=== PATIENT | female | born 1945 | race Caucasian/White ===

== ENCOUNTER 2022-08-18 14:45 | Inpatient (IN) | payer MEDICARE ==
[~2022-08-18] VITALS: Ht 160 cm; Wt 73.5 kg
[2022-08-18 15:30] LABS: BASOPHILS ABSOLUTE AUTO 0.08 K/mm3 (0.00-0.23); BASOPHILS PERCENT AUTO 1 % (0-2); EOSINOPHILS ABSOLUTE AUTO 0.29 K/mm3 (0.00-0.68); EOSINOPHILS PERCENT AUTO 3 % (0-6); Hematocrit 46.3 % (33.0-51.0); Hemoglobin 15.9 g/dL (11.5-16.0); IMMATURE GRAN ABSOLUTE AUTO 0.01 K/mm3 (0.00-0.10); IMMATURE GRAN PERCENT AUTO 0 % (0-1); LYMPHOCYTES ABSOLUTE AUTO 1.73 K/mm3 (0.84-5.20); LYMPHOCYTES PERCENT AUTO 20 % (21-46); MONOCYTES ABSOLUTE AUTO 1.17 K/mm3 (0.16-1.47); MONOCYTES PERCENT AUTO 14 % (4-13); Mean Corpuscular HGB 29.4 pg (26.0-34.0); Mean Corpuscular HGB Conc 34.3 g/dL (31.5-36.5); Mean Corpuscular Volume 86 fL (80-100); Mean Platelet Volume 11.1 fL (9.1-12.4); NEUTROPHILS ABSOLUTE AUTO 5.21 K/mm3 (1.96-9.15); NEUTROPHILS PERCENT AUTO 61 % (41-73); Platelet Count 300 K/mm3 (150-400); RDW Coefficient Variation 13.1 % (11.7-14.2); RDW Standard Deviation 40.6 fL (35.1-46.3); Red Blood Cell Count 5.41 M/mm3 (3.80-5.20); White Blood Cell Count 8.49 K/mm3 (4.00-11.30)
[2022-08-18 15:56] LABS: Albumin, Blood 4.1 g/dL (3.4-5.0); Albumin/Globulin Ratio 0.9 (0.8-1.8); Bilirubin, Total 0.6 mg/dL (0.1-1.0); Bun/Creatinine Ratio 29.9 (12.0-20.0); Calcium, Blood 9.6 mg/dL (8.5-10.1); Creatinine, Blood 2.51 mg/dL (0.40-1.00); Globulin, Blood 4.5 g/dL (2.2-4.0); Potassium, Blood 5.2 mmol/L (3.5-5.5); Total Protein, Blood 8.6 g/dL (6.4-8.2)
[2022-08-18 19:44] LABS: Source, Urine Clean Catch
[2022-08-18] MEDS ORDERED: FURO80 PO (20:04)
[2022-08-18] MEDS ORDERED: ELIQUIS5 M2 PO (20:04)
[2022-08-18] MEDS ORDERED: SPIR25 PO (20:04)
[2022-08-18] MEDS ORDERED: MAGNESIUM OXID500 MG PO (20:04)
[2022-08-18 20:05] LABS: Appearance, Urine Clear (Clear); Bilirubin, Urine Neg (Neg); Blood, Urine Neg (Neg); Color, Urine Yellow (P-Yellow); Glucose Qualitative, Urine Neg (Neg); Ketones, Urine Neg (Neg); Leukocyte Esterase, Urine 1+ (Neg); Nitrite, Urine Neg (Neg); Protein, Urine Neg (Neg); Specific Gravity, Urine 1.015 (1.003-1.022); Urobilinogen, Urine NORM (Normal)
[2022-08-18] MEDS ORDERED: TRIA15CR3 TOP (20:05)
[2022-08-18] MEDS ORDERED: LOSA25 PO (20:05)
[2022-08-18] MEDS ORDERED: CHLO25B PO (20:06)
[2022-08-18] MEDS ORDERED: METO100ER PO (20:07)
[2022-08-18] MEDS ORDERED: ATOR20 PO (20:07)
[2022-08-18] MEDS ORDERED: OMEP20ER PO (20:07)
[2022-08-18] MEDS ORDERED: THERA-D2000 UNIT PO (20:07)
[2022-08-18] MEDS ORDERED: LACT PO (20:08)
[2022-08-18 20:27] LABS: Bacteria Few /hpf; Squamous Epithelial Cells Few /hpf (Few)
[2022-08-18 20:28] LABS: Transitional Epithelial Cells Few /hpf (0-Rare)
--- NOTE | 2022-08-18 21:35 | NUR ---
PATIENT IS A NEW ADMIT FROM THE ED. AXOX 4 AND INDEPENDENT ARRIVED VIA W/C. REPORTED RIGHT FLANK PAIN AND RECEIVED TYLENOL IN ED PER ED RN. DENIES CHEST PAIN, SOB, AND N/V. REPORTS JUST MOVED TO [place] WITH HER SPOUSE. ORIENTED TO ROOM AND CALL LIGHT SYSTEM. NS STARTED @ 100 mL/HR. REPORTS WANTS TO WATCH TV AFTER ASSESSMENT. WCTM.
[2022-08-19 03:05] VITALS: BP 122/65
--- NOTE | 2022-08-19 04:11 | NUR ---
SHIFT SUMMARY PATIENT HAD NO ACUTE CHANGES. AXOX 4 AND SBA TO BSC. PIV REMAINS INTACT. NS INFUSING AT 100 mL/HR. VSS/AFEBRILE. DENIES CHEST PAIN, SOB, AND N/V. COOPERATIVE WITH CARE. CALL LIGHT IN REACH. BED IN LOWEST POSITION. WILL CONTINUE TO MONITOR UNTIL DAY SHIFT NURSE ASSUMES CARE.
[2022-08-19 05:36] LABS: Magnesium, Blood 2.1 mg/dL (1.6-2.4)
[2022-08-19 05:37] LABS: Calcium, Blood 8.6 mg/dL (8.5-10.1); Creatinine, Blood 1.86 mg/dL (0.40-1.00); Potassium, Blood 3.4 mmol/L (3.5-5.5)
[2022-08-19 07:39] VITALS: BP 143/64
[2022-08-19 16:14] VITALS: BP 128/68
--- NOTE | 2022-08-19 16:57 | NUR ---
SHIFT SUMMARY- PT IS A/O, PLESANT AND COOPERATVIE. HER APPETITE IS POOR THIS SHIFT. SHE IS INDEPENDENT TO THE BSC. SHE IS RECIEVING IV FLUIDS. HER BED IS IN THE LOW POSITION AND CALL LIGHT IS SHAHANA BAR. FAMILY AT BEDSIDE.
[2022-08-19 20:05] VITALS: BP 130/54
[2022-08-20 03:56] VITALS: BP 148/59
--- NOTE | 2022-08-20 04:48 | NUR ---
shift summery. pt up to bsc at sameer surring the night. pt alert and oriented. pt able to sleeep for a while durring the night. call light in reach.
[2022-08-20 05:44] LABS: Hematocrit 38.3 % (33.0-51.0); Hemoglobin 13.1 g/dL (11.5-16.0); Mean Corpuscular HGB 29.7 pg (26.0-34.0); Mean Corpuscular HGB Conc 34.2 g/dL (31.5-36.5); Mean Corpuscular Volume 87 fL (80-100); Platelet Count 219 K/mm3 (150-400); RDW Coefficient Variation 12.9 % (11.7-14.2); RDW Standard Deviation 41.1 fL (35.1-46.3); Red Blood Cell Count 4.41 M/mm3 (3.80-5.20); White Blood Cell Count 5.51 K/mm3 (4.00-11.30)
[2022-08-20 06:11] LABS: Albumin/Globulin Ratio 0.9 (0.8-1.8); Bilirubin, Total 0.5 mg/dL (0.1-1.0); Bun/Creatinine Ratio 31.4 (12.0-20.0); Calcium, Blood 8.6 mg/dL (8.5-10.1); Creatinine, Blood 1.18 mg/dL (0.40-1.00); Globulin, Blood 3.3 g/dL (2.2-4.0); Potassium, Blood 3.7 mmol/L (3.5-5.5)
[2022-08-20 06:13] LABS: Total Protein, Blood 6.3 g/dL (6.4-8.2)
[2022-08-20 07:18] VITALS: BP 147/63
[2022-08-20] MEDS ORDERED: FUROSEMIDE PO (11:18)
[2022-08-20] MEDS ORDERED: Potassium Chlo10 ME1 PO (11:19)
--- NOTE | 2022-08-20 12:38 | NUR ---
DISCHARGE SUMMARY S/P LILA, A/OX4, VSS, TOLERATING PO, INDEPENDENT IN THE ROOM, REPORTS PAIN A HEADACHE WHICH WAS RELIEVED BY TYLENOL PER HER REPORT. DISCHARGE INSTRUCTIONS DISCUSSED WITH THE PT INCLUDING HOME CARE, MEDICATION CHANGES, AND FOLLOW UP APPOINTMENTS. SHE HAD NO QUESTIONS AT TIME OF DISCHARGE, IV ACCESS REMOVED, PT ESCORTED OUT VIA WC TO PRIVATE AUTO.
== END 2022-08-20 12:08 | disposition home or self-care (01) | DRG 682 ==
LOC: ER 14:45 → ERHOLD 15:46 → MEDS 15:46
PROVIDERS: Nurse Practitioner Acute Care; Physician Assistant; ADMIT Internal Medicine
DX: N17.9 Acute kidney failure, unspecified (principal); K85.90 Acute pancreatitis without necrosis or infection, unspecified; I48.0 Paroxysmal atrial fibrillation; I10 Essential (primary) hypertension; E78.5 Hyperlipidemia, unspecified; K21.9 Gastro-esophageal reflux disease without esophagitis; E87.6 Hypokalemia; G47.33 Obstructive sleep apnea (adult) (pediatric); G89.29 Other chronic pain; M54.50 Low back pain, unspecified; E86.0 Dehydration; Z87.440 Personal history of urinary (tract) infections; Z85.3 Personal history of malignant neoplasm of breast; Z98.890 Other specified postprocedural states; Z88.0 Allergy status to penicillin; Z88.8 Allergy status to other drugs, medicaments and biological substances; Z79.01 Long term (current) use of anticoagulants; Z79.899 Other long term (current) drug therapy
CPT/HCPCS: 36415; 76770; 80048; 80053; 81001; 83690; 83735; 85025; 85027; 87086; 96360; 96361; 99285-25; A9270; G0378; J7030

== ENCOUNTER 2022-12-03 11:35 | Emergency (ER) | payer MEDICARE ==
[~2022-12-03] VITALS: Ht 160 cm; Wt 79.4 kg
[~2022-12-03 11:35] MED LIST: ATOR20 PO; CHLO25B PO; ELIQUIS5 M2 PO; FURO80 PO; FUROSEMIDE PO; LACT PO; LOSA25 PO; MAGNESIUM OXID500 MG PO; METO100ER PO; OMEP20ER PO; Potassium Chlo10 ME1 PO; SPIR25 PO; THERA-D2000 UNIT PO; TRIA15CR3 TOP
[2022-12-03 11:45] VITALS: BP 186/82
== END 2022-12-03 12:59 | disposition home or self-care (01) ==
LOC: ER 11:35
DX: S01.81XA Laceration without foreign body of other part of head, initial encounter (principal); S16.1XXA Strain of muscle, fascia and tendon at neck level, initial encounter; W22.8XXA Striking against or struck by other objects, initial encounter; Z88.0 Allergy status to penicillin; Z79.899 Other long term (current) drug therapy
CPT/HCPCS: 70450; 72125; 99283-25; A9270

== ENCOUNTER 2023-10-23 08:37 | Emergency (ER) | payer MEDICARE ==
[~2023-10-23] VITALS: Ht 160 cm; Wt 78.5 kg
[~2023-10-23 08:37] MED LIST changes: +ASPI81CH PO; +ATOR80 PO; +LOSA50 PO
[2023-10-23] MEDS ORDERED: Prochlorperazine Edisylate 10 mg Vial IV ONE (09:10)
[2023-10-23] MEDS ORDERED: Acetaminophen 500 MG Tab PO ONE (09:15)
[2023-10-23 09:26] LABS: BASOPHILS PERCENT AUTO 1 % (0-2); EOSINOPHILS ABSOLUTE AUTO 0.11 K/mm3 (0.00-0.68); EOSINOPHILS PERCENT AUTO 1 % (0-6); Hematocrit 45.3 % (33.0-51.0); Hemoglobin 15.3 g/dL (11.5-16.0); IMMATURE GRAN ABSOLUTE AUTO 0.03 K/mm3 (0.00-0.10); IMMATURE GRAN PERCENT AUTO 0 % (0-1); LYMPHOCYTES ABSOLUTE AUTO 1.72 K/mm3 (0.84-5.20); LYMPHOCYTES PERCENT AUTO 20 % (21-46); MONOCYTES ABSOLUTE AUTO 0.84 K/mm3 (0.16-1.47); MONOCYTES PERCENT AUTO 10 % (4-13); Mean Corpuscular HGB 29.5 pg (26.0-34.0); Mean Corpuscular HGB Conc 33.8 g/dL (31.5-36.5); Mean Corpuscular Volume 87 fL (80-100); Mean Platelet Volume 10.5 fL (9.1-12.4); NEUTROPHILS ABSOLUTE AUTO 5.96 K/mm3 (1.96-9.15); NEUTROPHILS PERCENT AUTO 68 % (41-73); Platelet Count 372 K/mm3 (150-400); RDW Coefficient Variation 14.4 % (11.7-14.2); RDW Standard Deviation 46.1 fL (35.1-46.3); Red Blood Cell Count 5.19 M/mm3 (3.80-5.20); White Blood Cell Count 8.76 K/mm3 (4.00-11.30)
[2023-10-23 09:57] LABS: Albumin, Blood 3.7 g/dL (3.4-5.0); Albumin/Globulin Ratio 0.8 (0.8-1.8); Bilirubin, Total 0.9 mg/dL (0.1-1.0); Bun/Creatinine Ratio 22.8 (12.0-20.0); Calcium, Blood 9.3 mg/dL (8.5-10.1); Creatinine, Blood 1.23 mg/dL (0.40-1.00); Globulin, Blood 4.5 g/dL (2.2-4.0); Potassium, Blood 5.8 mmol/L (3.5-5.5); Total Protein, Blood 8.2 g/dL (6.4-8.2)
[2023-10-23] MEDS ORDERED: NS 1,000 ML IV SCH (10:20)
[2023-10-23 12:04] LABS: Influenza A, PCR NEGATIVE (NEGATIVE); Influenza B, PCR NEGATIVE (NEGATIVE); Resp Syncytial Virus, PCR NEGATIVE (NEGATIVE); SARS-Cov-2 (COVID-19) PCR, MMC NEGATIVE (NEGATIVE)
[2023-10-23 13:16] LABS: Bun/Creatinine Ratio 20.8 (12.0-20.0); Calcium, Blood 8.5 mg/dL (8.5-10.1); Creatinine, Blood 1.3 mg/dL (0.40-1.00); Potassium, Blood 4.7 mmol/L (3.5-5.5)
[2023-10-23 15:00] VITALS: BP 148/67
[2023-10-24] MEDS ORDERED: Sodium Zirconium Cyclosilicate 10 GM Packet PO SCH (09:00)
== END 2023-10-23 16:03 ==
LOC: ER 08:37
PROVIDERS: Emergency Medicine
DX: I63.9 Cerebral infarction, unspecified (principal); G81.91 Hemiplegia, unspecified affecting right dominant side; E86.0 Dehydration; E87.5 Hyperkalemia; I48.91 Unspecified atrial fibrillation; I11.0 Hypertensive heart disease with heart failure; I50.9 Heart failure, unspecified; E78.5 Hyperlipidemia, unspecified; K21.9 Gastro-esophageal reflux disease without esophagitis; Z86.73 Personal history of transient ischemic attack (TIA), and cerebral infarction without residual deficits; Z88.0 Allergy status to penicillin; Z88.8 Allergy status to other drugs, medicaments and biological substances; Z79.01 Long term (current) use of anticoagulants; Z79.82 Long term (current) use of aspirin; Z79.899 Other long term (current) drug therapy; Z66 Do not resuscitate
CPT/HCPCS: 0241U; 70450; 80048; 80053; 82550; 84132; 85025; 93005; 93010; 96361; 96374; 97110; 97162; 99285-25; A9270; J0780; J7030

== ENCOUNTER 2023-12-26 03:00 | Inpatient (IN) | payer MEDICARE ==
[~2023-12-26] VITALS: Ht 160 cm; Wt 78.5 kg
[2023-12-26 03:36] LABS: BASOPHILS ABSOLUTE AUTO 0.11 K/mm3 (0.00-0.23); BASOPHILS PERCENT AUTO 1 % (0-2); EOSINOPHILS ABSOLUTE AUTO 0.32 K/mm3 (0.00-0.68); EOSINOPHILS PERCENT AUTO 2 % (0-6); Hemoglobin 13.8 g/dL (11.5-16.0); IMMATURE GRAN ABSOLUTE AUTO 0.05 K/mm3 (0.00-0.10); IMMATURE GRAN PERCENT AUTO 0 % (0-1); LYMPHOCYTES ABSOLUTE AUTO 1.73 K/mm3 (0.84-5.20); LYMPHOCYTES PERCENT AUTO 13 % (21-46); MONOCYTES PERCENT AUTO 7 % (4-13); Mean Corpuscular HGB 29.4 pg (26.0-34.0); Mean Corpuscular HGB Conc 33.7 g/dL (31.5-36.5); Mean Corpuscular Volume 87 fL (80-100); Mean Platelet Volume 10.6 fL (9.1-12.4); NEUTROPHILS ABSOLUTE AUTO 10.47 K/mm3 (1.96-9.15); NEUTROPHILS PERCENT AUTO 77 % (41-73); Platelet Count 297 K/mm3 (150-400); RDW Coefficient Variation 14.1 % (11.7-14.2); RDW Standard Deviation 45.7 fL (35.1-46.3); White Blood Cell Count 13.58 K/mm3 (4.00-11.30)
[2023-12-26] MEDS ORDERED: Lactated Ringer's 1,000 ML IV ONE (03:40)
[2023-12-26 03:53] LABS: Albumin, Blood 3.3 g/dL (3.4-5.0); Albumin/Globulin Ratio 0.9 (0.8-1.8); Bilirubin, Total 0.6 mg/dL (0.1-1.0); Bun/Creatinine Ratio 21.4 (12.0-20.0); Calcium, Blood 9.3 mg/dL (8.5-10.1); Creatinine, Blood 0.98 mg/dL (0.40-1.00); Globulin, Blood 3.7 g/dL (2.2-4.0); Potassium, Blood 4.1 mmol/L (3.5-5.5)
[2023-12-26] MEDS ORDERED: Diltiazem HCl 5 MG / ML 5ML Vial IV ONE (04:40)
[2023-12-26 04:44] LABS: Influenza A, PCR NEGATIVE (NEGATIVE); Influenza B, PCR NEGATIVE (NEGATIVE); Resp Syncytial Virus, PCR NEGATIVE (NEGATIVE); SARS-Cov-2 (COVID-19) PCR, MMC NEGATIVE (NEGATIVE)
[2023-12-26] MEDS ORDERED: LevoFLOXacin 750 MG Tab PO ONE (06:15)
[2023-12-26] MEDS ORDERED: FLU VACC TS2024-25(6MOS UP)/PF 45 MCG/0.5 ML SYRINGE IM SCH (06:55)
[2023-12-26] MEDS ORDERED: Azithromycin 500 MG in NS 250 ML IV SCH (08:00)
[2023-12-26] MEDS ORDERED: Aspirin 81 MG Chew PO SCH (09:00)
[2023-12-26] MEDS ORDERED: CefTRIAXone Sodium 1,000 MG in NS 100 ML IV SCH (09:00)
[2023-12-26] MEDS ORDERED: Metoprolol Succinate 50 MG TABCR PO SCH (09:00)
[2023-12-26] MEDS ORDERED: Atorvastatin 40 MG Tab PO SCH (09:00)
[2023-12-26] MEDS ORDERED: Apixaban 5 MG Tab PO SCH (09:00)
[2023-12-26 11:25] VITALS: BP 156/105
[2023-12-26] MEDS ORDERED: Ondansetron HCl 2 MG / ML 2ML Vial IV PRN (12:20)
[2023-12-26] MEDS ORDERED: Albuterol 2.5 MG/3 ML VIAL INH PRN (12:25)
--- NOTE | 2023-12-26 13:10 | NUR ---
NICOLE MOULTON RE TROP ELEVATED. REQUEST NEW TROP AT 1600. DONE
[2023-12-26] MEDS ORDERED: [UNRECOGNIZED DRUG - CODE] PO (14:21)
[2023-12-26] MEDS ORDERED: MELATONIN 5 MG1 EACH PO (14:22)
[2023-12-26] MEDS ORDERED: Acetaminophen650 M1 PO (14:23)
[2023-12-26] MEDS ORDERED: BISA10S PR (14:25)
[2023-12-26 15:43] VITALS: BP 146/85
--- NOTE | 2023-12-26 16:29 | NUR ---
CALLED AND UPDATED DR MOULTON FOR BNP [phone], PT ALSO REQUESTED TYLENOL FOR HEADACHE, TO MAKE ORDRES.
[2023-12-26] MEDS ORDERED: Acetaminophen 325 MG TABLET PO PRN (16:30)
[2023-12-26] MEDS ORDERED: Furosemide 10 MG / ML 2ML Vial IV SCH (17:00)
--- NOTE | 2023-12-26 17:55 | NUR ---
PT PLEASANT COOP SINCE ADMIT THIS MIDDAY. H/R REG, NO MURMUR NOTED. PER TELE NSR 79. NO EDEMA NOTED. IN TO VISIT THIS AFT. BUN AND TROP ELEVATED DISCUSSED WITH DR MOULTON. LUNGS LEFT UPPER CLEAR, CRACKLES T/O REST OF LUNG. DIM IN BOTH BASES. ON 2L O2, PT SITTING IN BED WATCHING TV AT THIS TIME. BED IN LOW POSITIOIN, CALL LITE IN REACH,, CALLS APROP
[2023-12-26 19:56] VITALS: BP 137/75
[2023-12-27] VITALS (9 sets, daily range): BP systolic 119–163; BP diastolic 68–91
[2023-12-27] MEDS ORDERED: Omeprazole 20 MG CapCR PO SCH (06:00)
[2023-12-27 06:51] LABS: BASOPHILS ABSOLUTE AUTO 0.07 K/mm3 (0.00-0.23); BASOPHILS PERCENT AUTO 1 % (0-2); EOSINOPHILS ABSOLUTE AUTO 0.21 K/mm3 (0.00-0.68); EOSINOPHILS PERCENT AUTO 2 % (0-6); Hematocrit 35.4 % (33.0-51.0); Hemoglobin 11.8 g/dL (11.5-16.0); IMMATURE GRAN ABSOLUTE AUTO 0.03 K/mm3 (0.00-0.10); IMMATURE GRAN PERCENT AUTO 0 % (0-1); LYMPHOCYTES ABSOLUTE AUTO 1.05 K/mm3 (0.84-5.20); LYMPHOCYTES PERCENT AUTO 10 % (21-46); MONOCYTES ABSOLUTE AUTO 1.04 K/mm3 (0.16-1.47); MONOCYTES PERCENT AUTO 10 % (4-13); Mean Corpuscular HGB Conc 33.3 g/dL (31.5-36.5); Mean Corpuscular Volume 87 fL (80-100); Mean Platelet Volume 11.4 fL (9.1-12.4); NEUTROPHILS ABSOLUTE AUTO 8.16 K/mm3 (1.96-9.15); NEUTROPHILS PERCENT AUTO 77 % (41-73); Platelet Count 237 K/mm3 (150-400); RDW Coefficient Variation 13.8 % (11.7-14.2); RDW Standard Deviation 44.5 fL (35.1-46.3); Red Blood Cell Count 4.07 M/mm3 (3.80-5.20); White Blood Cell Count 10.56 K/mm3 (4.00-11.30)
[2023-12-27 07:12] LABS: Bun/Creatinine Ratio 15.5 (12.0-20.0); Calcium, Blood 8.8 mg/dL (8.5-10.1); Creatinine, Blood 0.97 mg/dL (0.40-1.00); Potassium, Blood 3.4 mmol/L (3.5-5.5)
[2023-12-27] MEDS ORDERED: Furosemide 10 MG / ML 2ML Vial IV SCH (09:00)
[2023-12-27] MEDS ORDERED: Potassium Chloride 20 MEQ TabCR PO SCH (11:00)
[2023-12-27] MEDS ORDERED: Diltiazem HCl 5 MG / ML 5ML Vial IV ONE (17:20)
[2023-12-27] MEDS ORDERED: Potassium Chl 10MEQ/Water100ML 100 ML IV ONE (17:25)
[2023-12-27] MEDS ORDERED: Magnesium Sulf 2 GM/Water 50ML 50 ML IV ONE (17:25)
--- NOTE | 2023-12-27 19:29 | NUR ---
SHIFT SUMMARY: PT A&OX4 THROUGHOUT SHIFT. MAKES NEEDS KNOWN TO STAFF. IV ABX AND LASIX CONTINUES. PT AMBULATES TO THE BSC WITH 1P ASSISTANCE. PT DENIES ANY CP OR SOB THROUGHOUT THE SHIFT, ALTHOUGH PT APPEARS SOB. PT HAD AN EPISODE OF " AFLUTTER IN THE 130'S-150'S" PER EPIC MANAGER ROUND 1157 BUT CONVERTED BACK TO SINUS BEFORE THIS RN WAS ABLE TO OBTAIN AN EKG. PT HAD ANOTHER EPISODE OF "AFLUTTER IN THE 110'S-130'S" PER TELE TECHAT 1650. EKG WAS OBTAINED AND PT WAS IN AFIB RVR. PROVIDER AWARE OF BOTH EVENTS. PT WAS MEDICATED WITH DILT AT 1730 AND CONVERTED BACK TO SINUS RHYTHM AT 1745. MAG AND POTASIUM WERE ALSO STARTED. VSS. NO OTHER SIGNIFICANT EVENTS HAVE HAPPENED DURING THIS SHIFT.
[2023-12-28 03:36] VITALS: BP 146/74
[2023-12-28 03:38] VITALS: BP 137/69
[2023-12-28 05:44] LABS: BASOPHILS ABSOLUTE AUTO 0.07 K/mm3 (0.00-0.23); BASOPHILS PERCENT AUTO 1 % (0-2); EOSINOPHILS ABSOLUTE AUTO 0.43 K/mm3 (0.00-0.68); EOSINOPHILS PERCENT AUTO 6 % (0-6); Hematocrit 36.6 % (33.0-51.0); Hemoglobin 11.9 g/dL (11.5-16.0); IMMATURE GRAN ABSOLUTE AUTO 0.02 K/mm3 (0.00-0.10); IMMATURE GRAN PERCENT AUTO 0 % (0-1); LYMPHOCYTES ABSOLUTE AUTO 1.64 K/mm3 (0.84-5.20); LYMPHOCYTES PERCENT AUTO 23 % (21-46); MONOCYTES ABSOLUTE AUTO 0.83 K/mm3 (0.16-1.47); MONOCYTES PERCENT AUTO 12 % (4-13); Mean Corpuscular HGB Conc 32.5 g/dL (31.5-36.5); Mean Corpuscular Volume 89 fL (80-100); Mean Platelet Volume 11.3 fL (9.1-12.4); NEUTROPHILS PERCENT AUTO 58 % (41-73); Platelet Count 226 K/mm3 (150-400); RDW Coefficient Variation 13.7 % (11.7-14.2); RDW Standard Deviation 44.7 fL (35.1-46.3); Red Blood Cell Count 4.11 M/mm3 (3.80-5.20); White Blood Cell Count 7.19 K/mm3 (4.00-11.30)
[2023-12-28 05:49] LABS: Magnesium, Blood 2.2 mg/dL (1.6-2.4)
[2023-12-28 05:50] LABS: Albumin, Blood 2.7 g/dL (3.4-5.0); Albumin/Globulin Ratio 0.8 (0.8-1.8); Bilirubin, Total 0.7 mg/dL (0.1-1.0); Bun/Creatinine Ratio 19.5 (12.0-20.0); Calcium, Blood 8.7 mg/dL (8.5-10.1); Creatinine, Blood 0.93 mg/dL (0.40-1.00); Globulin, Blood 3.5 g/dL (2.2-4.0); Potassium, Blood 3.6 mmol/L (3.5-5.5); Total Protein, Blood 6.2 g/dL (6.4-8.2)
--- NOTE | 2023-12-28 06:00 | NUR ---
SHIFT SUMMARY PT A&OX4 AND ANSWERS QUESTIONS APPROPRIATELY. PT RECEIVED SCHEDULED MEDICATIONS WITH NO CONCERNS. PT ON CONTINUOUS TELEMETRY RUNNING NSR. PT SPENT MOST OF SHIFT IN BED WITH EYES CLOSED AND RESPIRATIONS EVEN AND UNLABORED. VSS, NO COMPLAINTS OF CP/PRESSURE OR SOB. NO ACUTE EVENTS AT THIS TIME. PT REPOSITIONED INDEPENDENTLY. PT LEFT IN A POSITION OF SAFETY WITH FALL PRECAUTIONS IN PLACE AND CALL LIGHT IN REACH.
[2023-12-28 07:32] VITALS: BP 159/68
[2023-12-28 15:26] VITALS: BP 145/56
--- NOTE | 2023-12-28 17:56 | NUR ---
SHIFT SUMMARY PT ALERT, ORIENTED X4; CALM AND COOPERAIVE WITH CARE. PT RESTING IN BED, UP IN CHAIR MULTIPLE TIMES DURING SHIFT. UP TO SHOWER THIS AFTERNOON. PT DENIES PAIN, CHEST PAIN/PRESSURE, NAUSEA, DIZZINESS AND NUMB/TINGLING. PT REPORT SOB WITH EXERTION, ATTEMPTED TO TITRATE OFF O2 DURING SHIFT, DESATURATED, DR NOTIFIED, NEW ORDERS FOR HOME O2 EVAL FOR 12/29/23. TELE SINUS, BP STABLE. ABD SOFT, NONTENDER, +BT. OTHER VSS. NO OTHER ACUTE CHANGES NOTED.
[2023-12-28 21:29] VITALS: BP 141/70
[2023-12-29 03:37] VITALS: BP 133/87
[2023-12-29 07:32] VITALS: BP 162/74
[2023-12-29] MEDS ORDERED: NS 250 ML IV PRN (08:50)
[2023-12-29 15:03] VITALS: BP 141/67
--- NOTE | 2023-12-29 16:39 | NUR ---
SHIFT SUMMARY PT IS A/OX4. PT REPORTS SOB WITH EXERTION AND SOME GENERALIZED WEAKNESS. PT EVALUATED THIS SHIFT FOR POSSIBLE HOME O2 EVAL, SATS REMAINED >92% ON RA. TELE RUNNING SINUS RHYTHM IN THE 60-70'S, WITH OCCASIONAL RUNS OF AFIB/AFLUTTER. PT IS A 1 PERSON SBA TO THE BSC DUE TO WEAKNESS AND ASSISTANCE WITH LINES. EXPECTED TO DISCHARGE TOMORROW.
[2023-12-29 19:59] VITALS: BP 147/105
[2023-12-30 02:48] VITALS: BP 141/74
--- NOTE | 2023-12-30 03:34 | NUR ---
SHIFT SUMMARY: PT ALERT ORIENTED X 4 ABLE TO VERBALIZE NEEDS. REQUIRES SBA TO TRANSFER TO COMMODE. BP WAS ELEVATED AT 147/105 AT START OF SHIFT BUT WENT DOWN TO 141/74. REMAINS ON RA SATTING AT 93%. NO C/O SOB. SHE GOES IN AND OUT OF AFLUTTER/AFIB WITH A RATE OF 140 THEN BACK TO NSR WITH A RATE OF 70. PLAN IS TO DISCHARGE TO HOME IN THE MORNING. WE STILL NEED A SPUTUM CULTURE BUT SHES UNABLE TO COUGH ANYTHING UP. SHES SLEEPING IN BED AT THIS TIME.
[2023-12-30 05:00] LABS: BASOPHILS ABSOLUTE AUTO 0.09 K/mm3 (0.00-0.23); BASOPHILS PERCENT AUTO 1 % (0-2); EOSINOPHILS ABSOLUTE AUTO 0.67 K/mm3 (0.00-0.68); EOSINOPHILS PERCENT AUTO 9 % (0-6); Hematocrit 40.3 % (33.0-51.0); Hemoglobin 13.8 g/dL (11.5-16.0); IMMATURE GRAN ABSOLUTE AUTO 0.02 K/mm3 (0.00-0.10); IMMATURE GRAN PERCENT AUTO 0 % (0-1); LYMPHOCYTES ABSOLUTE AUTO 2.41 K/mm3 (0.84-5.20); LYMPHOCYTES PERCENT AUTO 32 % (21-46); MONOCYTES ABSOLUTE AUTO 0.87 K/mm3 (0.16-1.47); MONOCYTES PERCENT AUTO 12 % (4-13); Mean Corpuscular HGB 29.2 pg (26.0-34.0); Mean Corpuscular HGB Conc 34.2 g/dL (31.5-36.5); Mean Corpuscular Volume 85 fL (80-100); Mean Platelet Volume 10.6 fL (9.1-12.4); NEUTROPHILS ABSOLUTE AUTO 3.39 K/mm3 (1.96-9.15); NEUTROPHILS PERCENT AUTO 46 % (41-73); Platelet Count 325 K/mm3 (150-400); RDW Coefficient Variation 13.5 % (11.7-14.2); RDW Standard Deviation 42.1 fL (35.1-46.3); Red Blood Cell Count 4.72 M/mm3 (3.80-5.20); White Blood Cell Count 7.45 K/mm3 (4.00-11.30)
[2023-12-30 05:20] LABS: Albumin/Globulin Ratio 0.8 (0.8-1.8); Bilirubin, Total 0.6 mg/dL (0.1-1.0); Bun/Creatinine Ratio 20.1 (12.0-20.0); Calcium, Blood 9.5 mg/dL (8.5-10.1); Creatinine, Blood 0.95 mg/dL (0.40-1.00); Globulin, Blood 3.7 g/dL (2.2-4.0); Potassium, Blood 3.7 mmol/L (3.5-5.5); Total Protein, Blood 6.7 g/dL (6.4-8.2)
[2023-12-30 08:10] VITALS: BP 169/79
[2023-12-30] MEDS ORDERED: Furosemide 20 MG Tab PO SCH (09:00)
[2023-12-30] MEDS ORDERED: FURO20 PO (12:14)
[2023-12-30] MEDS ORDERED: POTCHL20ER PO (12:14)
[2023-12-30] MEDS ORDERED: ALBU90OI INH (12:15)
[2023-12-30] MEDS ORDERED: CEFD300 PO (12:16)
== END 2023-12-30 14:58 | disposition home health service (06) | DRG 871 ==
LOC: ER 03:00 → MEDS 06:52 → ENPENDDIS 12-30 11:38 → MEDS 12-30 14:58
PROVIDERS: Internal Medicine; Student in an Organized Health Care Education/Training Program; ADMIT Internal Medicine
DX: A41.9 Sepsis, unspecified organism (principal); I50.33 Acute on chronic diastolic (congestive) heart failure; J18.9 Pneumonia, unspecified organism; J96.01 Acute respiratory failure with hypoxia; I69.951 Hemiplegia and hemiparesis following unspecified cerebrovascular disease affecting right dominant side; I48.0 Paroxysmal atrial fibrillation; I11.0 Hypertensive heart disease with heart failure; E78.5 Hyperlipidemia, unspecified; M10.9 Gout, unspecified; G47.33 Obstructive sleep apnea (adult) (pediatric); Z85.3 Personal history of malignant neoplasm of breast; Z90.10 Acquired absence of unspecified breast and nipple; Z90.710 Acquired absence of both cervix and uterus; Z98.890 Other specified postprocedural states; Z88.0 Allergy status to penicillin; Z88.8 Allergy status to other drugs, medicaments and biological substances; Z79.01 Long term (current) use of anticoagulants; Z79.82 Long term (current) use of aspirin; Z79.899 Other long term (current) drug therapy
CPT/HCPCS: 0241U; 36415; 71045; 80048; 80053; 83735; 83880; 84145; 84484; 85025; 87040; 93005; 93010; 94640; 94664; 94760; 94761; 96360; 96361; 97110; 97116; 97162; 97165; 97535; 99285-25; A9270; J0456; J0696; J1940; J2405; J3475; J3480; J7050; J7120

== ENCOUNTER 2024-06-16 14:29 | Emergency (ER) | payer MEDICARE ==
[~2024-06-16] VITALS: Ht 160 cm; Wt 72.6 kg
[~2024-06-16 14:29] MED LIST changes: +ALBU90OI INH; +Acetaminophen650 M1 PO; +BISA10S PR; +CEFD300 PO; +FURO20 PO; +MELATONIN 5 MG1 EACH PO; +POTCHL20ER PO; +[UNRECOGNIZED DRUG - CODE] PO
[2024-06-16] MEDS ORDERED: Diphth,Pertuss(Acell),Tet Vac 0.5 ML VIAL IM ONE (17:00)
[2024-06-16] MEDS ORDERED: Acetaminophen 500 MG Tab PO ONE (17:25)
[2024-06-16 17:50] VITALS: BP 184/102
== END 2024-06-16 17:58 | disposition home or self-care (01) ==
LOC: ER 14:29
DX: S09.90XA Unspecified injury of head, initial encounter (principal); E78.5 Hyperlipidemia, unspecified; I10 Essential (primary) hypertension; K21.9 Gastro-esophageal reflux disease without esophagitis; G47.33 Obstructive sleep apnea (adult) (pediatric); I48.0 Paroxysmal atrial fibrillation; Z88.1 Allergy status to other antibiotic agents; Z91.018 Allergy to other foods; Z79.01 Long term (current) use of anticoagulants; Z79.899 Other long term (current) drug therapy; Z79.82 Long term (current) use of aspirin; W18.30XA Fall on same level, unspecified, initial encounter
CPT/HCPCS: 70450; 90471; 90715; 99284-25; A9270

== ENCOUNTER 2024-09-09 10:43 | Emergency (ER) | payer MEDICARE ==
[~2024-09-09] VITALS: Ht 177.8 cm; Wt 70.3 kg
[2024-09-09 11:17] LABS: BASOPHILS ABSOLUTE AUTO 0.08 K/mm3 (0.00-0.23); BASOPHILS PERCENT AUTO 1 % (0-2); EOSINOPHILS PERCENT AUTO 5 % (0-6); Hemoglobin 14.2 g/dL (11.5-16.0); IMMATURE GRAN ABSOLUTE AUTO 0.04 K/mm3 (0.00-0.10); IMMATURE GRAN PERCENT AUTO 1 % (0-1); LYMPHOCYTES ABSOLUTE AUTO 1.68 K/mm3 (0.84-5.20); LYMPHOCYTES PERCENT AUTO 19 % (21-46); MONOCYTES ABSOLUTE AUTO 0.79 K/mm3 (0.16-1.47); MONOCYTES PERCENT AUTO 9 % (4-13); Mean Corpuscular HGB 28.9 pg (26.0-34.0); Mean Corpuscular HGB Conc 32.3 g/dL (31.5-36.5); Mean Corpuscular Volume 89 fL (80-100); Mean Platelet Volume 10.3 fL (9.1-12.4); NEUTROPHILS ABSOLUTE AUTO 5.65 K/mm3 (1.96-9.15); NEUTROPHILS PERCENT AUTO 66 % (41-73); Platelet Count 246 K/mm3 (150-400); RDW Coefficient Variation 12.9 % (11.7-14.2); RDW Standard Deviation 42.8 fL (35.1-46.3); Red Blood Cell Count 4.92 M/mm3 (3.80-5.20); White Blood Cell Count 8.64 K/mm3 (4.00-11.30)
[2024-09-09 11:42] LABS: Albumin, Blood 3.6 g/dL (3.4-5.0); Albumin/Globulin Ratio 0.9 (0.8-1.8); Bilirubin, Total 0.6 mg/dL (0.1-1.0); Bun/Creatinine Ratio 19.4 (12.0-20.0); Calcium, Blood 8.4 mg/dL (8.5-10.1); Creatinine, Blood 1.03 mg/dL (0.40-1.00); Globulin, Blood 3.9 g/dL (2.2-4.0); Potassium, Blood 4.1 mmol/L (3.5-5.5); Total Protein, Blood 7.5 g/dL (6.4-8.2)
[2024-09-09] MEDS ORDERED: Acetaminophen 325 MG TABLET PO ONE (12:30)
[2024-09-09 13:35] VITALS: BP 192/96
== END 2024-09-09 13:35 | disposition home or self-care (01) ==
LOC: ER 10:43
PROVIDERS: Student in an Organized Health Care Education/Training Program
DX: S09.90XA Unspecified injury of head, initial encounter (principal); I10 Essential (primary) hypertension; K21.9 Gastro-esophageal reflux disease without esophagitis; G47.33 Obstructive sleep apnea (adult) (pediatric); I48.0 Paroxysmal atrial fibrillation; Z88.0 Allergy status to penicillin; Z79.01 Long term (current) use of anticoagulants; Z79.2 Long term (current) use of antibiotics; Z79.899 Other long term (current) drug therapy; Z79.82 Long term (current) use of aspirin; E78.5 Hyperlipidemia, unspecified; W18.30XA Fall on same level, unspecified, initial encounter; Y92.000 Kitchen of unspecified non-institutional (private) residence as the place of occurrence of the external cause
CPT/HCPCS: 70450; 71046; 80053; 85025; 93005; 93010; 99285-25; A9270

== ENCOUNTER 2025-03-07 18:45 | Emergency (ER) | payer MEDICARE ==
[~2025-03-07] VITALS: Ht 160 cm; Wt 75.8 kg
[2025-03-07 21:00] VITALS: BP 128/91
[2025-03-07] MEDS ORDERED: OxyCODONE 5 mg/Acetamin 325 mg TABLET PO ONE (21:40)
[2025-03-07] MEDS ORDERED: Ondansetron HCl 2 MG / ML 2ML Vial IV ONE (21:40)
[2025-03-07] MEDS ORDERED: FentaNYL Citrate 50 MCG/ML 2 ML Injection IV ONE (22:05)
[2025-03-07] MEDS ORDERED: OXAYDO5 M1 PO (22:42)
[2025-03-07] MEDS ORDERED: ONDA4ODT MM (22:42)
[2025-03-07] MEDS ORDERED: RX Prepack 2 Tabs Ondansetron ODT 4MG UD ONE (22:45)
[2025-03-07] MEDS ORDERED: RX Prepack 6 Tabs Oxycodone 5mg UD ONE (22:45)
[2025-03-07] MEDS ORDERED: Ondansetron 4 MG SoluTab SL ONE ×2 (23:15)
[2025-03-09] MEDS ORDERED: ALLO100 PO (05:58)
== END 2025-03-07 23:20 | disposition home or self-care (01) ==
LOC: ER 18:45
DX: S42.332A Displaced oblique fracture of shaft of humerus, left arm, initial encounter for closed fracture (principal); S42.212A Unspecified displaced fracture of surgical neck of left humerus, initial encounter for closed fracture; W17.89XA Other fall from one level to another, initial encounter; Z79.01 Long term (current) use of anticoagulants
CPT/HCPCS: 70450; 73060; 93005; 93010; 96374; 96375; 99284-25; A9270; J2405; J3010